=== PATIENT | female | born 1965 | race Caucasian/White ===

== ENCOUNTER 2017-08-23 17:18 | Emergency (ER) | payer MEDICAID, OTHER ==
[2017-08-23 17:24] VITALS: BP 155/105; PULSE 95; RESP 18; TEMP 98.1; O2SAT 92
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
[2017-08-23] MEDS ORDERED: ONDANSETRON DISINTEGRATING 4 MG TAB PO ONE (19:04)
[2017-08-23] MEDS ORDERED: CEFTRIAXONE IM 350 MG/ML SYRINGE IM ONE (19:04)
[2017-08-23] MEDS ORDERED: ACETAMINOPHEN 500 MG TAB PO ONE (19:04)
[2017-08-23] MEDS ORDERED: AZITHROMYCIN 250 MG TAB PO ONE (19:04)
== END 2017-08-23 21:45 | disposition home or self-care (01) ==
LOC: EEVIPCON 17:18
DX: T74.21XA Adult sexual abuse, confirmed, initial encounter (principal); Z87.891 Personal history of nicotine dependence; Y07.9 Unspecified perpetrator of maltreatment and neglect
CPT/HCPCS: J0696